=== PATIENT | male | born 1970 | race Caucasian/White ===

== ENCOUNTER 2018-02-17 12:53 | Observation (INO) | payer OTHER ==
[2018-02-17 14:24] LABS: #Lymphocytes 1.4 thou/uL (1.20-3.40); #Monocytes 0.5 thou/uL (0.11-0.59); #Neutrophils 7.5 thou/uL (1.40-6.50); %Basophils 0.5 % (0.0-1.0); %Eosinophils 0.2 % (0.0-10.0); %Lymphocytes 14.9 % (21.0-51.0); %Monocytes 5.7 % (0.0-10.0); %Neutrophils 78.8 % (42.0-75.0); Mean Corpuscular HGB CONC 33.7 g/dL (32.0-36.0); Mean Corpuscular Hemoglobin 32.9 pg (27.0-31.0); Mean Corpuscular Volume 97.4 fL (78.0-98.0); Mean Platelet Volume 8.6 fL (7.4-10.4); Platelet Count 290 thou/uL (130-400); RBC Distribution Width 10.8 % (11.5-14.5); Red Blood Cell (RBC) Count 3.64 mill/uL (4.70-6.10); White Blood Cell (WBC) Count 9.5 thou/uL (4.8-10.8)
[2018-02-17 14:45] LABS: Anion Gap 9 mmol/L (10-20); BUN (Urea Nitrogen) 32 mg/dL (8.9-20.6); Calc. Creatinine Clearance 0 mL/min (70-130); Calcium 9.1 mg/dL (7.8-10.44); Carbon Dioxide 27 mmol/L (22-29); Chloride 102 mmol/L (98-107); Estimated GFR-MDRD Greater than 90; Glucose 176 mg/dL (70-105); Sodium 134 mmol/L (136-145)
[2018-02-17 14:50] LABS: Troponin I Less than 0.010 ng/mL (< 0.028)
--- NOTE | 2018-02-17 18:34 | CT ---
BRAIN CT WITHOUT IV CONTRAST: 02/17/18 HISTORY: 47-year-old male with a history of acute lightheadedness. History of two prior seizures. There is no focal mass or midline shift. No intra or extra-axial hemorrhage. Sinuses and mastoids a re clear. IMPRESSION: No acute intracranial process. No mass or bleed. POS: [facility]
[2018-02-17 19:52] VITALS: BMI 23.1
[2018-02-17] MEDS ORDERED: Ondansetron ODT 4 MG TAB SL PRN (20:09)
[2018-02-17] MEDS ORDERED: Ondansetron PF 4 MG/2 ML Vial IVP PRN (20:09)
[2018-02-18] MEDS ORDERED: Senokot S 8.6-50 MG TAB PO PRN (04:19)
[2018-02-18] MEDS ORDERED: Bisacodyl 5 MG TAB PO PRN (04:19)
[2018-02-18] MEDS ORDERED: Acetaminophen 325 MG TAB PO PRN (04:19)
--- NOTE | 2018-02-18 05:09 | PDOC.EVN ---
Event Note - Event Note Event Note: h&p dictated [id number]
[2018-02-18] MEDS: Famotidine 20 MG TAB PO SCH ×2 (08:42→22:50)
[2018-02-18] MEDS: Methimazole 5 MG TAB PO SCH (08:43)
[2018-02-18] MEDS ORDERED: Methimazole 10 MG TAB PO SCH (09:00)
[2018-02-18] MEDS ORDERED: Enoxaparin Sodium 30 MG/0.3 ML SYRINGE SC SCH (09:00)
--- NOTE | 2018-02-18 09:40 | HP ---
PRIMARY CARE PHYSICIAN: Out of town. CHIEF COMPLAINT: Dizziness. HISTORY OF PRESENT ILLNESS: A 47-year-old male who presents with a chief complaint of abrupt onset of lightheadedness when getting his blood drawn. Patient denies any prior similar episodes. It appears that every time the patient gets up, he has acute onset of lightheadedness. He states that approximately 4-5 days ago, he was doing outdoor work and fell on his back without any subsequent pain or discomfort. Other than that, he recalls no new recent changes to his overall health other than the acute onset of lightheadedness. It appears that the patient was sent in due to this acute episode while getting routine blood work drawn. With this paperwork, it appears that there was concern for the possibility of a seizure. The patient himself does not recall any prodromal symptoms, does not recall any loss of consciousness during this episode. REVIEW OF SYSTEMS: As per HPI. Constitutional: No fevers, no chills, no significant weight loss or gain. HEENT: As per HPI. No changes in vision. Cardiovascular: Denies any chest pain, denies any chest pressure, denies any left-sided arm numbness or tingling. Respiratory: No cough, no congestion, no shortness of breath. Gastrointestinal: No nausea, no vomiting, no abdominal pain, no issues with diarrhea or constipation. Genitourinary: No changes in urinary frequency, color, quantity, or odor. Musculoskeletal: No new myalgias or arthralgias. Remainder of the review of systems otherwise negative. PAST MEDICAL AND SURGICAL HISTORY: Significant for prior history of hypothyroidism which is currently now hyperthyroidism. Otherwise, no prior surgeries. HOME MEDICATIONS: Significant for methimazole. The patient states he used to be on levothyroxine, but that has been changed. ALLERGIES: No known drug allergies. FAMILY HISTORY: The patient denies any family history of seizure or tumors. SOCIAL HISTORY: The patient denies any tobacco use. Drinks less than 6 beers a day, but does drink most days. Denies any illicit drug use. 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 PHYSICAL EXAMINATION: GENERAL: The patient is awake, alert, and appropriate, in no acute distress, lying in the hospital stretcher. HEENT: Normocephalic, atraumatic. Equal ocular motions are intact, moist mucous membranes. CARDIOVASCULAR: S1, S2. No murmurs, rubs, or gallops. Pulses 2+ bilateral upper extremities. No pitting pedal edema. RESPIRATORY: Reasonable air movement. No wheezes, rales, or rhonchi. No conversational dyspnea. Clear to auscultation bilaterally. GASTROINTESTINAL: Positive bowel sounds. Soft, nontender to palpation. MUSCULOSKELETAL: Moving all 4 extremities. NEUROLOGIC: Cranial nerves II through XII are grossly intact. Strength 5/5 in all 4 extremities, equal. LABORATORY DATA AND IMAGING: CT of the brain: Impression: No acute intracranial process. No mass or bleed. WBC 9.5, hemoglobin 12.0, hematocrit 35.4, platelets 290,000. Sodium 134, potassium 4.0, chloride 102, bicarbonate 27, BUN 32, creatinine 0.81, glucose 176. Troponin less than 0.01. ASSESSMENT AND PLAN: A 47-year-old male presenting with a chief complaint of dizziness. 1. Dizziness with acute onset particularly positional. Check orthostatic vital signs. Question is that the patient may have a component of volume depletion. There is also documented concern for a "seizure" that has already been suggested by others who saw the patient have the actual episode. This is only noted in the ED record and not discussed elsewhere that I can determine. CT of the brain has been unremarkable. We will go ahead and check an MRI. Consult Neurology. 2. History of hyperthyroidism. Currently on methimazole. We will go ahead and check a TSH of the morning as well. 3. Diet: As tolerated. 4. Activity: As tolerated. 5. Deep venous thrombosis prophylaxis with enoxaparin. Admit the patient to observation status. [facility]
[2018-02-18 11:17] LABS: #Basophils 0.1 thou/uL (0.0-0.2); #Lymphocytes 1.9 thou/uL (1.20-3.40); #Monocytes 0.4 thou/uL (0.11-0.59); #Neutrophils 4.2 thou/uL (1.40-6.50); %Basophils 1.3 % (0.0-1.0); %Eosinophils 0.5 % (0.0-10.0); %Lymphocytes 28.2 % (21.0-51.0); %Monocytes 5.8 % (0.0-10.0); %Neutrophils 64.2 % (42.0-75.0); Hemoglobin 9.9 g/dL (14.0-18.0); Mean Corpuscular HGB CONC 34.3 g/dL (32.0-36.0); Mean Corpuscular Hemoglobin 33.5 pg (27.0-31.0); Mean Corpuscular Volume 97.7 fL (78.0-98.0); Mean Platelet Volume 8.3 fL (7.4-10.4); Platelet Count 270 thou/uL (130-400); RBC Distribution Width 10.9 % (11.5-14.5); Red Blood Cell (RBC) Count 2.96 mill/uL (4.70-6.10); White Blood Cell (WBC) Count 6.6 thou/uL (4.8-10.8)
[2018-02-18] MEDS ORDERED: Lidocaine 1% PF 5 ML VIAL ONE (11:23)
[2018-02-18] MEDS ORDERED: Esmolol 100 MG/10 ML VIAL ONE (11:23)
[2018-02-18] MEDS ORDERED: PROPOFOL 200 MG/20 ML VIAL ONE (11:23)
[2018-02-18] MEDS ORDERED: Sodium Chloride 0.9% 500 ML IV SCH (11:45)
[2018-02-18 11:46] LABS: ALT (SGPT) 27 U/L (8-55); AST (SGOT) 20 U/L (5-34); Albumin 3.9 g/dL (3.5-5.0); Alkaline Phosphatase 35 U/L (40-150); Anion Gap 9 mmol/L (10-20); BUN (Urea Nitrogen) 15 mg/dL (8.9-20.6); Bilirubin, Total 0.3 mg/dL (0.2-1.2); Calc. Creatinine Clearance 89 mL/min (70-130); Calcium 8.8 mg/dL (7.8-10.44); Carbon Dioxide 29 mmol/L (22-29); Chloride 103 mmol/L (98-107); Estimated GFR-MDRD Greater than 90; Globulin 1.9 g/dL (2.4-3.5); Glucose 188 mg/dL (70-105); Potassium 3.7 mmol/L (3.5-5.1); Protein, Total 5.8 g/dL (6.0-8.3); Sodium 137 mmol/L (136-145)
[2018-02-18 12:02] LABS: Free T4 (Free Thyroxine) 0.73 ng/dL (0.70-1.48)
[2018-02-18] MEDS ORDERED: Pantoprazole 40 MG VIAL IVP SCH (12:30)
--- NOTE | 2018-02-18 12:32 | MRI ---
NONCONTRAST ENHANCED MRI BRAIN: History: Lightheadedness. History of seizures. Technique: Multiplanar, multisequence noncontrast enhanced MRI images were obtained of the brain. FINDINGS: Images demonstrate no significant evidence of martinez or white matter abnormality seen. The brain is unremarkable. No evidence of acute intracranial masses, hemorrhages, or strokes seen. No evidence of areas of diffusion restriction seen. The ventricles are of normal size. Normal flow voids seen in the major intracranial vessels. No evidence of extraaxial masses or lesions seen. Noted is a small amount of fluid in the left mastoid air cells. IMPRESSION: Small amount of left mastoid fluid, otherwise unremarkable MRI brain. POS: [facility]
[2018-02-18] MEDS ORDERED: GoLYTELY 4,000 ml Bottle PO SCH (13:45)
--- NOTE | 2018-02-18 13:54 | RAD ---
FRONTAL RADIOGRAPH CHEST: 02/18/2018 HISTORY: Syncope. COMPARISON: None. FINDINGS: The lungs are clear. The heart and mediastinal contour is unremarkable. IMPRESSION: No acute findings. POS: [facility]
[2018-02-18] MEDS: Sodium Chloride 0.9% 1,000 ML IV SCH (13:57)
[2018-02-18 16:44] LABS: Hemoglobin 10.2 g/dL (14.0-18.0)
--- NOTE | 2018-02-18 16:51 | PDOC.PN ---
- Subjective Encounter Start Date: 02/18/18 Encounter Start Time: 11:00 Subjective: F/u on new admission for dizziness, pre-syncope, possible seizure -: Patient reports melena, +guiac in ED - Objective Resuscitation Status: Resuscitation Status FULL:Full Resuscitation Vital Signs & Weight: Vital Signs (12 hours) Temp Pulse Resp BP BP BP BP 02/18/18 15:19 97.9 F 93 18 123/76 02/18/18 11:32 98.3 F 89 20 111/60 02/18/18 08:15 98.3 F 88 16 101/60 96/61 102/58 L Pulse Ox 02/18/18 15:19 100 02/18/18 11:32 100 02/18/18 08:15 95 Weight Weight 60.691 kg I&O: 02/17/18 02/18/18 02/19/18 06:59 06:59 06:59 Intake Total 500 240 Output Total 700 Balance -200 240 Result Diagrams: 02/18/18 16:28 02/18/18 10:36 Phys Exam - Physical Examination HEENT: PERRLA, moist MMs, sclera anicteric Neck: no nodes, no JVD Respiratory: no wheezing, no rales, clear to auscultation bilateral Cardiovascular: RRR, no significant murmur Gastrointestinal: soft, non-tender Musculoskeletal: no edema, pulses present Neurological: non-focal, normal sensation Lymphatic: no nodes Psychiatric: normal affect, A&O x 3 Skin: no rash, normal turgor Dx/Plan (1) Dizziness, nonspecific Code(s): R42 - DIZZINESS AND GIDDINESS Status: Acute (2) Pre-syncope Status: Acute (3) Melena Code(s): K92.1 - MELENA Status: Acute (4) Hyperthyroidism Code(s): E05.90 - THYROTOXICOSIS, UNSP WITHOUT THYROTOXIC CRISIS OR STORM Status: Acute - Plan -: GI consult- will take to Endoscopy for Upper/Lower GI scope -: Order thyroid panel, serial H&H, will order protonix -: MRI negative, Dr. Sutton to see patient -: Will continue to monitor * .
[2018-02-18] MEDS ORDERED: Ondansetron HCl/PF 4 MG/2 ML Vial IVP PRN (21:05)
[2018-02-18] MEDS ORDERED: Promethazine HCl 25 MG/ML VIAL IM PRN (21:05)
[2018-02-18] MEDS ORDERED: Promethazine HCl 25 MG/ML VIAL SLOW IVP PRN (21:05)
[2018-02-18 21:41] LABS: Hemoglobin 9.2 g/dL (14.0-18.0)
[2018-02-18] MEDS: Pantoprazole 40 MG VIAL IVP SCH (22:53)
--- NOTE | 2018-02-18 23:34 | CON ---
DATE OF CONSULTATION: 02/18/2018 CONSULTING PHYSICIAN: Hospitalist Service. IMPRESSION: Syncopal seizure secondary to probable orthostasis from his gastrointestinal bleed. PLAN: 1. No further workup neurologically is necessary. 2. Address GI bleed issue. HISTORY OF PRESENT ILLNESS: Mr. Simpson is a 47-year-old man who reports that he was having weak epi sodes with diaphoresis at home while sitting at the table. When he would lie down, he would feel sherice ewhat better. He had noticed that his stools have been black and tarry this week. He came to the em ergency room for evaluation. While they were drawing blood in the sitting position, he blacked out a fter feeling dizzy. He apparently had some seizure-like twitching. He was moved to a stretcher and evaluation was undertaken. He was tachycardic with a rate in the 100s documented. He has been start ed on IV fluids and GI prep has been undertaken and he reports his bowel movements have turned from b lack to pink. He denies any past history of seizures as a child or otherwise he had an MRI of the br ain done which was normal. PAST MEDICAL HISTORY: Otherwise, negative. ALLERGIES: None. SOCIAL HISTORY: Unremarkable. FAMILY HISTORY: Unremarkable. REVIEW OF SYSTEMS: Negative for any lateralized neurologic symptoms. PHYSICAL EXAMINATION: GENERAL: He is a reasonably healthy appearing middle-aged man in no distress. VITAL SIGNS: Pulse 88-100 and respirations 16. HEENT: Pupils equal and reactive. Conjunctivae clear. Oropharynx clear. Cranium normocephalic and atraumatic. NECK: No lymphadenopathy. EXTREMITIES: No cyanosis, clubbing or edema. NEUROLOGIC: He is alert and appropriate. His speech is fluent and clear. His exam is nonfocal. LABORATORY STUDIES: Showed a hemoglobin that had dropped from 12 down to 9. SUMMARY: Clinical picture is consistent with hypotensive induced seizure-like activity, I do not thi nk there is any need for further neurologic workup.
--- NOTE | 2018-02-19 00:07 | OP ---
DATE OF PROCEDURE: 02/18/2018 PROCEDURES PERFORMED: 1. Esophagogastroduodenoscopy with biopsy. 2. Esophagogastroduodenoscopy with injection of 1:10,000 epinephrine injected to control the bleeding. 3. Esophagogastroduodenoscopy with 10-Croatian heater probe therapy of bleeding ulcer in the duodenal bulb. PREOPERATIVE DIAGNOSES: 1. Gastrointestinal bleeding. 2. History of dark black tarry stool and also near syncope recently. POSTOPERATIVE DIAGNOSES: 1. Normal esophagus. 2. Normal gastric fundus and body and cardia. 3. Ulcer measuring 1 cm over the gastric antrum, nonbleeding. 4. Bleeding also in the duodenal bulb over the apex with a large visible vessel. PROCEDURE IN DETAIL: The patient was placed on the left lateral position and a bite block was placed. The patient was given sedation by Anesthesia Department. A Pentax video gastroscope under direct vision was passed down the oropharynx, past the GE junction, into the stomach. The esophageal mucosa appeared normal. The GE junction appeared normal. The fundus, cardia and gastric body, no pathology seen. Stomach is empty and no blood seen. There is ulceration over the gastric antrum measuring approximately 1 cm. Ulcer is nonbleeding. The incisural angularis, no pathology seen. The scope advanced into the duodenal bulb. The patient found to have bleeding ulcer over the apex of the duodenal bulb. There is ulceration with a large visible vessel bleeding. The ulcer base was injected with epinephrine 1:10,000.. Following injection, the bleeding appears to be controlled. Subsequently, a 10-Croatian heater probe was passed down the biopsy channel and the ulcer base cauterized with good hemostasis. Endoscope was withdrawn back to the stomach. After a few minutes, the scope advanced back into the duodenum. The ulcer appears well cauterized and there is no bleeding seen. The scope was withdrawn back to stomach and biopsy of the gastric antrum and gastric body. The stomach was decompressed, and the scope removed. [facility]
[2018-02-19] MEDS: Sodium Chloride 0.9% 1,000 ML IV SCH ×2 (01:06→12:15)
--- NOTE | 2018-02-19 03:36 | OP ---
DATE OF SURGERY: 02/18/2018 OPERATIVE PROCEDURE: Colonoscopy, polypectomy. PREOPERATIVE DIAGNOSES: Gastrointestinal bleeding, occult gastrointestinal bleeding. POSTOPERATIVE DIAGNOSES: 1. Large polyp measuring approximately 3 cm over the lower sigmoid area with thick stalk. 2. Otherwise, normal colon. PROCEDURE IN DETAIL: The patient was placed on his left lateral position and was given sedation by Anesthesia Department. A rectal exam was done, and the scope was advanced into the rectum. No lesions felt on rectal exam. A Pentax video colonoscope was introduced into the rectum and brought all the way into the cecum. The appendical opening, ileocecal valve, cecum, no pathology seen. The ascending colon, hepatic flexure, transverse colon, splenic flexure, descending colon, no pathology seen. Over the lower sigmoid colon area, patient found to have a very large polyp, which probably measured approximately about 3 cm with a thick stalk. Because of the risk of bleeding after polypectomy, I elected to inject epinephrine at the stalk of the polyp. A 2 mL of epinephrine was injected at the polyp stalk. Following the injection, a snare cautery was used to remove the polyp completely. The polypectomy site appears well cauterized, no bleeding seen. Rectum showed no pathology. RECOMMENDATIONS: As follows: 1. Keep patient on clear liquid diet. 2. Stat CBC and follow the H&H tomorrow. The patient has no recurrence of bleeding, advance diet hopefully tomorrow morning. [facility]
[2018-02-19 05:00] LABS: #Basophils 0.1 thou/uL (0.0-0.2); #Lymphocytes 2.3 thou/uL (1.20-3.40); #Monocytes 0.6 thou/uL (0.11-0.59); #Neutrophils 5.5 thou/uL (1.40-6.50); %Basophils 0.9 % (0.0-1.0); %Eosinophils 0.6 % (0.0-10.0); %Lymphocytes 26.9 % (21.0-51.0); %Monocytes 6.8 % (0.0-10.0); %Neutrophils 64.9 % (42.0-75.0); Hemoglobin 8.3 g/dL (14.0-18.0); Mean Corpuscular HGB CONC 34.9 g/dL (32.0-36.0); Mean Corpuscular Volume 97.5 fL (78.0-98.0); Mean Platelet Volume 8.1 fL (7.4-10.4); Platelet Count 253 thou/uL (130-400); RBC Distribution Width 10.8 % (11.5-14.5); Red Blood Cell (RBC) Count 2.44 mill/uL (4.70-6.10); White Blood Cell (WBC) Count 8.5 thou/uL (4.8-10.8)
[2018-02-19 05:28] LABS: ALT (SGPT) 25 U/L (8-55); AST (SGOT) 20 U/L (5-34); Albumin 3.4 g/dL (3.5-5.0); Alkaline Phosphatase 30 U/L (40-150); Anion Gap 10 mmol/L (10-20); BUN (Urea Nitrogen) 9 mg/dL (8.9-20.6); Bilirubin, Total 0.3 mg/dL (0.2-1.2); Calc. Creatinine Clearance 96 mL/min (70-130); Calcium 8.2 mg/dL (7.8-10.44); Carbon Dioxide 27 mmol/L (22-29); Chloride 108 mmol/L (98-107); Estimated GFR-MDRD Greater than 90; Globulin 1.6 g/dL (2.4-3.5); Glucose 77 mg/dL (70-105); Potassium 3.6 mmol/L (3.5-5.1); Sodium 141 mmol/L (136-145)
--- NOTE | 2018-02-19 08:23 | CON ---
DATE OF CONSULTATION: 02/18/2018 REFERRING PHYSICIAN: Rajan Smith D.O. REASON FOR CONSULTATION: History of black tarry stool, occult GI bleeding. HISTORY OF PRESENT ILLNESS: Mr. Everett Simpson is a very pleasant 47-year-old male, who is very fragile looking, hospitalized yesterday because of dizziness. He underwent CAT scan of the head and also MRI of brain and they were negative. The patient was noting black tarry stool this morning. His blood count dropped from 12 to 10. The stool was dark and it was also positive for occult blood. The patient upon questioning has been having black tarry stool over the last 3 days. He has also been slightly lightheaded off and on. There is no history of syncopal episode. The patient is a very healthy white male except for a history of hyper-hypothyroidism, on methimazole. He also takes a baby aspirin once a day and Advil as needed for some back pain and myalgias. The patient had no abdominal pain. There is no indigestion. No heartburn. No dysphagia. The stools were black and he has been having at least 3-4 stools per day. No similar episodes in the past. There is no history of any NSAID intake. He has no relevant history. ALLERGIES: None. SOCIAL HISTORY: The patient is . He does not smoke, but drinks alcohol at least 3 beers daily. MEDICAL ILLNESSES: History of hypo-hyperthyroidism and is on methimazole. He was on levothyroxine before, now he is on methimazole. He does see a primary care doctor in [facility]. There is no history of hypertension, diabetes, heart disease, lung disease, asthma or eczema. SURGERIES: None. FAMILY HISTORY: Mother with breast cancer and diabetes. REVIEW OF SYSTEMS: A 10-point system review. Constitutional: No history fever or chills. No weight loss and good energy level. HEENT: Normal vision. No diplopia, no hearing loss, no nosebleed, no sore throat, etc. Respiratory : No history of chronic cough, hemoptysis, dyspnea. Cardiovascular: No chest pain, no palpitation, no dyspnea, orthopnea or PND. Gastrointestinal: History of black tarry stool. Otherwise, no GI symptoms. Genitourinary: No relevant symptoms. QUALITY ASSURANCE TESTER: History of dizziness recently. Neurologic: Unremarkable. Psychiatric: Unremarkable. Endocrine: Unremarkable. PHYSICAL EXAMINATION: GENERAL: He is thin built, appears comfortable. He is a very fragile looking male. VITAL SIGNS: Stable at pulse of 89, blood pressure is 110/60, temperature 98.3 degrees Fahrenheit. HEENT: Conjunctivae clear. NECK: Supple. No adenitis or thyromegaly noted. CARDIOVASCULAR SYSTEM: First and second heart sounds are normal. LUNGS: Clear to auscultation. ABDOMEN: Soft to palpate. No organomegaly. No tenderness. No masses. EXTREMITIES: Reveal no edema. LABORATORY DATA: CBC: WBC 9500, hemoglobin 12 dropping to 9.9 today, hematocrit 35.4 dropping to 29, MCV 97.4, platelet count 290,000, polymorphs 78 , lymphocytes 14, monocytes 5. Serum chemistries shows elevation of BUN mostly from bleeding. Sodium 134, potassium 4, chloride 102, bicarbonate 27, BUN 32 dropping down to 15 today, creatinine 0.86, glucose 188, calcium 8.8, bilirubin 0.3, AST 20, ALT 27, alkaline phosphatase 35. Albumin is 3.9. T4 is 0.73. TSH is 2.005. CLINICAL IMPRESSION: 1. A 47-year-old with history of black tarry stool over the last 3-4 days. He did have elevated BUN, mostly from the upper gastrointestinal bleeding with reabsorption of blood making the BUN go up. 2. Dizziness, most likely due to recent gastrointestinal bleeding. 3. History of hypo-hyperthyroidism, presently on methimazole. PLAN: 1. IV PPI. 2. Follow up H and H. 3. N.p.o. 4. EGD later on today. Unfortunately, he had a regular breakfast this morning and we have to wait 8 hours before the EGD can be done. [facility]
[2018-02-19] MEDS: Pantoprazole 40 MG VIAL IVP SCH (08:57)
[2018-02-19] MEDS: Methimazole 5 MG TAB PO SCH (08:57)
[2018-02-19] MEDS: Famotidine 20 MG TAB PO SCH (08:57)
[2018-02-19 10:28] LABS: Hemoglobin 8.5 g/dL (14.0-18.0)
[2018-02-19 11:33] VITALS: BP 113/67; TEMP 98
--- NOTE | 2018-02-19 19:00 | PRG ---
DATE OF SERVICE: 02/19/2018 SUBJECTIVE: This is a 47-year-old male hospitalized with syncope, melena, anemia due to blood loss. An EGD done last night and was found to have active bleeding from the ulcer in the duodenal bulb. This ulcer was cauterized with 10 Montserratian probe and also with injection of epinephrine. He also had a very large sessile polyp in the sigmoid colon area. Overnight, he has done very well. No abdominal pain, no nausea or vomiting. He has had no stool overnight and this morning. He is tolerating diet. Blood count did drop down from 8.5 to 8.3. This may be from hemodilution of the actual bleeding. The last hemoglobin is 8.5, hematocrit 24.3. OBJECTIVE: VITAL SIGNS: Afebrile, pulse is 85, blood pressure 113/67. CARDIOVASCULAR/LUNGS: normal. ABDOMEN: Soft. Abdomen is nontender. No organomegaly or masses. CLINICAL IMPRESSION: 1. Bleeding duodenal ulcer, status post heater probe. 2. Large polyp of sigmoid colon, s/p polypectomy . RECOMMENDATIONS: 1. No aspirin or NSAID medication. 2. Pantoprazole 40 twice a day. 3. Feosol 325 p.o. 3 times a day. 4. The patient was advised not to drink any alcohol for the next 1 month. 5. He will come back to me in 2 weeks for followup. [facility]
--- NOTE | 2018-02-20 01:24 | DIS ---
DATE OF ADMISSION: 02/17/2018 DATE OF DISCHARGE: 02/19/2018 PRIMARY CARE PHYSICIAN: Out of town in [place]. CHIEF COMPLAINT: Dizziness. CONSULTANTS: Dr. Michael, GI and Dr. Sutton, Neurology. CODE STATUS: FULL. PROCEDURES: 1. Patient had a brain MRI, which demonstrated no acute process other than some fluid in the left mastoid. 2. Patient had a brain CT without contrast, no acute intracranial process. 3. The patient had a chest x-ray, no acute findings. 4. The patient also had upper and lower endoscopy, which showed normal esophagus, normal gastric fundus and body of the cardia, ulcer measuring 1 cm over the gastric antrum, nonbleeding, bleeding seen in the duodenal bulb over the apex with a large visible vessel, which was cauterized. DISCHARGE DIAGNOSES: 1. Gastrointestinal bleed, resolved. 2. History of hyperthyroidism. REVIEW OF SYSTEMS: Constitutional: No fevers, chills, or significant weight loss or gain. HEENT: Denies any nasal drainage, sore throat. Eyes are round and reactive to light. No changes in vision. Cardiovascular: Denies any chest pain or chest pressure. Respiratory: No shortness of breath, no cough. Abdomen: Denies any abdominal pain. Patient denies any diarrhea or constipation. Denies any pain after the procedure yesterday. Musculoskeletal: Denies any new myalgias or arthralgias. The remainder of the review of systems is negative. PHYSICAL EXAMINATION: The patient was examined by me this morning. GENERAL: He is awake, alert, oriented, and appropriate, in no acute distress. HEENT: Normocephalic, atraumatic. Extraocular motions are intact. Moist mucous membranes. CARDIOVASCULAR: S1, S2. No murmurs, rubs, or gallops. RESPIRATORY: No wheezes, rales, or rhonchi. Clear to auscultation bilaterally. GASTROINTESTINAL: Positive bowel signs. Soft, nontender. MUSCULOSKELETAL: He is moving all extremities. NEUROLOGIC: Cranial nerves II through XII are grossly intact. Strength 5/5 in all extremities. HOSPITAL COURSE: The patient is a 47-year-old male who presented to the ER with a chief complaint of abrupt onset of lightheadedness when he was getting his blood drawn. On further discussion, he reports being lightheaded and dizzy every time he changed position for the last 4-5 days. Reports doing some outdoor work for 5 days ago became dizzy and fell on his back without any subsequent pain or discomfort. Reports that he recently converted from being hypothyroidism to hyperthyroidism and his medications were changed that is the only change to his health in the last 6 months or so. When he passed out getting his blood drawn, there was some concern that he had a seizure and was worked up with an MRI and a Neurology consult. He also complained of some dark tarry stool and his hemoglobin initially was 12 and dropped to 9.9 and 10.2 the following day. GI consult was ordered. Dr. Michael saw the patient and consented him to do an upper and lower GI series the same evening. This was done and it discovered that he did have a bleed in the duodenal bulb, which was cauterized. Patient denies any further discomfort, any diarrhea today. Denies any dizziness, shortness of breath, any symptoms. Hemoglobin has stabilized at 8.5 and the patient requested to go home. He will need to have follow up with his PCP and Dr. Spring or Dr. Michael in the next couple of weeks. HOME MEDICATIONS: The patient takes Tapazole 10 mg p.o. q.a.m. and Protonix 40 mg p.o. b.i.d. was added to his home regimen. ALLERGIES: None. CONDITION: Stable. DISCHARGE INSTRUCTIONS: The patient will be discharged home. Referral to his PCP in [place] in [address] Spring or Dr. Michael in the next 2-3 weeks. [facility]
== END 2018-02-19 15:45 | disposition home or self-care (01) ==
LOC: ERS 12:53 → 2SW 19:36
PROVIDERS: ADMIT Internal Medicine; ATTEND Internal Medicine
PROC: 0DBN8ZX Excision of Sigmoid Colon, Via Natural or Artificial Opening Endoscopic, Diagnostic (ICD-10-PCS; principal; 2018-02-18)
PROC: 3E0H8GC Introduction of Other Therapeutic Substance into Lower GI, Via Natural or Artificial Opening Endoscopic (ICD-10-PCS; 2018-02-18)
PROC: 0DB68ZX Excision of Stomach, Via Natural or Artificial Opening Endoscopic, Diagnostic (ICD-10-PCS; 2018-02-18)
DX: D12.5 Benign neoplasm of sigmoid colon (principal); K29.50 Unspecified chronic gastritis without bleeding; E05.90 Thyrotoxicosis, unspecified without thyrotoxic crisis or storm; Z79.899 Other long term (current) drug therapy
CPT/HCPCS: 36415; 70450; 70551; 71045; 80048; 80053; 82274; 82553; 84439; 84443; 84481; 84484; 85025; 88305; 88312; 93005; 94760; 96360; 96361; 96372; 96374; 96376; C9113; G0378; J1650; J2001; J2704

== ENCOUNTER 2018-09-15 06:01 | Observation (INO) | payer OTHER ==
[2018-09-15] MEDS ORDERED: cloNIDine 0.1 MG TAB ONE (06:14)
[2018-09-15 09:48] VITALS: TEMP 98.2; BMI 23.1
[2018-09-15 10:02] LABS: Troponin I 0.073 ng/mL (< 0.028)
[2018-09-15] MEDS ORDERED: Acetaminophen 325 MG TAB PO PRN (10:02)
[2018-09-15] MEDS ORDERED: Methimazole 10 MG TAB PO SCH ×2 (10:04→10:30)
[2018-09-15 14:13] VITALS: BP 124/76
--- NOTE | 2018-09-15 15:07 | NM ---
EXAM: CARDIAC SPECT HISTORY: Chest pain, indeterminate troponins TECHNIQUE: A myocardial perfusion scan was performed using the single isotope 1 day protocol with kyaw hnetium 99m sestamibi. [10 mCi] was injected intravenously for the rest exam followed by 30 mCi for the stress study. Exercise stress was monitored and interpreted by Bhavik Wan, nurse practitioner. FINDINGS: Homogeneous tracer distribution is seen in the myocardial segments on stress and rest image s without fixed or reversible defects. Gated SPECT LVEF: 78% Wall motion exam: Normal IMPRESSION: Normal myocardial perfusion scan
--- NOTE | 2018-09-15 17:11 | HP ---
CHIEF COMPLAINT: Sore throat. HISTORY OF PRESENT ILLNESS: This patient is a 48-year-old male who presented to the emergency department in [place]. The patient reported that he had some sensation of having a sinus infection in the last evening when going to bed, had some mild drainage and sore throat. His throat felt a little swollen, and he just "did not feel right." In general, he felt like his pulse was a little fast, and he was breathing a little faster. He got up, checked his blood pressure, it was 150/100. He repeated it, and it was the same. He waited about 20 minutes, checked it again, and his systolic was in the 130s. He denied any chest pain, tightness, pressure, or heaviness. Denied nausea, vomiting, or lightheadedness, and currently states his only symptom is that he is hungry. He has no sore throat at the minute. He still has some sinus congestion. He has had some chills at home, he says, and he started feeling better after that. REVIEW OF SYSTEMS: All systems reviewed, all pertinent positives and negatives noted in the HPI. PAST MEDICAL HISTORY: The patient has a history of thyroid issues. He was initially hypo, then hyperthyroid. He is apparently close to normalizing, and his methimazole dose has been decreased. Mild peptic ulcer disease. PAST SURGICAL HISTORY: None. FAMILY HISTORY: Mother had breast cancer and atrial fibrillation. Father had COPD. Sister with atrial fibrillation. SOCIAL HISTORY: The patient is a nonsmoker. Drinks 3 to 4 beers per day. Denies drugs. He is . He is full code, and his would be his surrogate decision maker. PHYSICAL EXAMINATION: VITAL SIGNS: Temperature 98.2, pulse 87, respirations 16, O2 saturation 96% on room air, BP 107/67. GENERAL APPEARANCE: Age-appropriate male, in no distress. Awake, alert, oriented, pleasant, and cooperative. HEENT: PERRL. No OP lesions. He has no significant pharyngeal erythema or evidence of posterior pharyngeal drainage. He has no sinus tenderness. NECK: Supple and symmetric with no lymphadenopathy, JVD, or carotid bruits. HEART: Regular rate and rhythm without murmurs, gallops, or rubs. LUNGS: Clear to auscultation bilaterally with good chest wall expansion and air exchange. ABDOMEN: Soft, nontender, and nondistended. Positive bowel sounds. No masses. No organomegaly. EXTREMITIES: No cyanosis, clubbing, or edema. LABORATORY DATA: White count 15.2, hemoglobin 14.8, platelets 280, 79 neutrophils, 11 bands, 9 lymphocytes. Chemistries normal. Troponin 0.06, subsequently 0.083, and the third just now is 0.073. Strep screen was negative. DIAGNOSTIC DATA: Chest x-ray is unremarkable. EKG shows sinus rhythm with no abnormalities. IMPRESSION AND PLAN: 1. Sore throat, possibly sinus infection. The patient had a little bit of a white count when he presented. Cannot repeat as he received some steroids in the emergency department in [place], although his symptoms seem to be fairly minimal, I think that can be observed. 2. Indeterminate troponins. The patient had a troponin checked in [place]. He had a subsequent here that was slightly increased over the baseline, but all remain in the indeterminate range. His third is actually lower. The patient has no risk factors for coronary artery disease and actually had no specific chest pain symptoms. However, discussing this with the patient, we will go ahead and obtain stress test this afternoon. If that is negative, we will go ahead and discharge to home. 3. Hyperthyroidism. Check TSH level. Continue with his methimazole. 4. Elevated blood pressure. The patient had transient elevation of his blood pressure. It sounds like he possibly had a bit of anxiety or adrenaline surge which bumped his blood pressure up a little bit, which could have also contributed to his slight bump in the troponins as well, seems to be completely normalized at this point. No further intervention. Job ID: [id number]
[2018-09-16] MEDS ORDERED: Methimazole 10 MG TAB PO SCH (09:00)
--- NOTE | 2018-09-16 10:16 | DIS ---
DATE OF ADMISSION: 09/15/2018 DATE OF DISCHARGE: 09/15/2018 DISCHARGE DIAGNOSES: 1. Sore throat/sinus infection. 2. Indeterminate troponins. 3. Hypothyroidism. 4. Elevated blood pressure. HISTORY OF PRESENT ILLNESS: This patient is a 48-year-old male who developed some sore throat in the middle of the night and subsequently had difficulty sleeping, got out of bed, felt like his heart was racing. He was breathing hard and checked his blood pressure, it was a bit elevated, so he presented to the emergency department in [place]. There, the patient's blood pressure remained a bit elevated and his workup was notable for an indeterminate level troponin. The patient was subsequently transferred to our facility where he was placed in the observation unit. HOSPITAL COURSE: The patient remained in observation on telemetry with no evidence of significant ectopy or arrhythmias or ischemic changes. He had no significant elevations of his troponins. He underwent a nuclear medicine stress test, which was negative. He remains asymptomatic throughout his stay and was felt to be in stable condition for discharge. The patient is discharged to home. He is to continue his usual activity and has no dietary restrictions. He will remain on his methimazole 2.5 mg daily. FOLLOWUP: He is to follow up with Dr. Kern and he can return to the hospital should he have any problems prior to that time. Job ID: [id number]
== END 2018-09-15 16:32 | disposition home or self-care (01) ==
LOC: ERS 06:01 → 2SW 09:05
PROVIDERS: ADMIT Internal Medicine; ATTEND Internal Medicine
DX: J02.9 Acute pharyngitis, unspecified (principal); R03.0 Elevated blood-pressure reading, without diagnosis of hypertension; E05.90 Thyrotoxicosis, unspecified without thyrotoxic crisis or storm; R79.89 Other specified abnormal findings of blood chemistry; E03.9 Hypothyroidism, unspecified; Z79.899 Other long term (current) drug therapy
CPT/HCPCS: 36415; 78452; 84443; 93005; 93017; A9500; G0378